=== PATIENT | female | born 1945 | race Caucasian/White ===

== ENCOUNTER 2017-07-10 18:48 | Emergency (ER) | payer OTHER, MEDICARE ==
[~2017-07-10 18:48] MED LIST: ADVAIR 250-501 EACH INH; ALENDRONATE SOD70 M2 PO; ASPIRIN EC81 M1 PO; CELEXA10 M1 PO; CYCLOBENZAPRINE10 M1 PO; DIAZEPAM5 MG PO; FLEXERIL 5MG TAB5 MG PO; GABAPENTIN600 M1 PO; GABAPENTIN600 MG PO; MULTI-DAY PLUS1 EAC1 PO; OXYCODONE-ACET1 EAC1 PO; PERCOCET 325 MG1 TA2 PO; PERCOCET 325 MG1 TA3 PO; PREDNISONE10 M2 PO; TESSALON PERLE100 M1 PO; VENTOLIN HFA18 GM INH; VITAMIN E100 UNI2 PO; ZITHROMAX500 M2 PO
--- NOTE | 2017-07-10 19:14 | ED GENERAL ADULT ---
History of Present Illness General Chief Complaint: Lower Extremity Problems Stated Complaint: BILATERAL LOWER EXT SWELLING Source: patient, family (daughter) Exam Limitations: no limitations Vital Signs & Intake/Output Vital Signs & Intake/Output Vital Signs Date Time Temp Pulse Resp B/P B/P Pulse O2 O2 Flow FiO2 Mean Ox Delivery Rate 07/10 2217 98.5 90 22 158/84 95 Room Air 07/11 2043 98.0 07/10 2028 98.0 78 22 160/84 96 07/10 185 98.2 89 22 96 ED Intake and Output 07/11 0000 07/10 1200 Intake Total Output Total Balance Patient 125 lb Weight Allergies Coded Allergies: No Known Allergies (06/17/17) Reconcile Medications Albuterol Sulfate (Ventolin Hfa) 18 GM HFA.AER.AD 2 PUF INH PRN COPD ( Reported) Aspirin (Ecotrin*) 81 MG TABLET.DR 1 TAB PO DAILY HEART/BLOOD (Reported) Citalopram Hydrobromide (Celexa) 10 MG TABLET 1 TAB PO DAILY MENTAL HEALTH ( Reported) Codeine Phosphate/Guaifenesi (Cheratussin AC Syrup) 10 MG-100 MG/5 ML LIQUID 10 ML PO Q6H PRN COUGH Cyclobenzaprine HCl 10 MG TABLET 2 TAB PO QPM MUSCLE SPASMS (Reported) Fluticasone/Salmeterol (Advair 250-50 Diskus) 1 EACH BLST.W.DEV 1 PUF INH BID COPD (Reported) Gabapentin 600 MG TABLET 1 TAB PO TID NERVE PAIN (Reported) Levofloxacin (Levaquin) 500 MG TABLET 1 TAB PO DAILY PNA Multivitamin-Min/Iron/FA/Vit K (Multi-Day Plus Minerals Tablet) 18 MG IRON-400 MCG-25 MCG TABLET 1 TAB PO DAILY SUPPLEMENT (Reported) Oxycodone HCl/Acetaminophen (Oxycodone-Acetaminophen 10-325) 1 EACH TABLET 1 TAB PO TID PRN PAIN (Reported) Prednisone 10 MG TABLET 1 TAB PO AD INFLAMMATION DAY1/DAY2 FOUR TABS DAY3/DAY4 THREE TABS DAY5/DAY6 TWO TABS DAY 7 ONE TAB Vitamin E Mixed (Vitamin E) (Unknown Strength) TABLET (Unknown Dose) PO DAILY SUPPLEMENT (Reported) Triage Note: PER PT 2 WEEKS BLE SWOLLEN AT FEET, CALLED LUIS ARMANDO AND TOLD TO COME TO ED, PAIN TO LEGS FROM HIP TO TOES. 1-2+PEDAL EDEMA Triage Nurses Notes Reviewed? yes Onset: Abrupt Duration: week(s): (2), constant, continues in ED, getting worse Timing: single episode today Injury Environment: home Severity: mild, moderate Severity Numbers: 6 No Modifying Factors: none LMP (ages 10-50): post menopausal, unknown : No Patient currently breastfeeds: No HPI: 72-year-old male past medical history of hyperlipidemia and COPD presents for evaluation of lower extremity edema. Patient states that both her legs up and swollen over the past 2-3 weeks. She says that normally they're doing okay during the day and swelling up at night. She reports some mild pain in the left thigh. She states that usually the swelling is worse in the right side but currently only the left side is swollen. She also reports she has had a productive cough over the past several weeks. No shortness of breath hemoptysis chest pain or fever. She does have a history of COPD he has been using her inhalers with mild improvement. No lightheadedness or dizziness. No nausea vomiting diarrhea. No history of CHF. (Carlos Grigsby) Past History Travel History Traveled to [place] past 21 day No Medical History Any Pertinent Medical History? see below for history Neurological: NONE EENT: NONE Cardiovascular: hyperlipidemia Respiratory: COPD, emphysema Gastrointestinal: NONE Hepatic: NONE Renal: NONE Musculoskeletal: BSPINAL STENOSIS Psychiatric: NONE Endocrine: NONE Blood Disorders: NONE Cancer(s): NONE TELETYPE CLERK/Reproductive: NONE Tetanus Vaccine: 02/22/15 Surgical History Surgical History: non-contributory Psychosocial History What is your primary language Ukrainian Tobacco Use: Current Daily Use Daily Tobacco Use Amount/Type: => 5 Cigarettes daily Family History Hx Contributory? No (Carlos Grigsby) Review of Systems Review of Systems Constitutional: Reports: no symptoms. EENTM: Reports: no symptoms. Respiratory: Reports: see HPI, cough, sputum production. Cardiovascular: Reports: peripheral edema. GI: Reports: no symptoms. Genitourinary: Reports: no symptoms. Musculoskeletal: Reports: see HPI, muscle pain. Skin: Reports: no symptoms. Neurological/Psychological: Reports: no symptoms. Hematologic/Endocrine: Reports: no symptoms. Immunologic/Allergic: Reports: no symptoms. All Other Systems: Reviewed and Negative (Carlos Grigsby) Physical Exam Physical Exam General Appearance: well developed/nourished, no apparent distress, alert, awake Head: atraumatic, normal appearance Eyes: Bilateral: normal appearance, PERRL, EOMI. Ears, Nose, Throat: normal pharynx, normal ENT inspection, hearing grossly normal Neck: normal inspection, supple, full range of motion Respiratory: normal breath sounds, chest non-tender, no respiratory distress, lungs clear, decreased breath sounds Cardiovascular: regular rate/rhythm, normal peripheral pulses Peripheral Pulses: 2+ radial (R), 2+ radial (L) Gastrointestinal: soft, non-tender Back: normal inspection, normal range of motion, no vertebral tenderness Extremities: There is mild nonpitting left-sided lower extremity edema mostly around the ankle and lower calf. There is no swelling of the right lower extremity. Full range of motion of the bilateral upper and lower extremities. Patient is able to walk and bear weight. No erythema or focal fluctuant areas. Neurologic/Psych: no motor/sensory deficits, awake, alert, oriented x 3, normal gait Skin: intact, normal color, warm/dry Lymphatic: no anterior cervical bre Core Measures ACS in differential dx? No CVA/TIA Diagnosis: No Sepsis Present: No Sepsis Focused Exam Completed? No (Jaun MEJIA,Carlos) Progress Differential Diagnoses I considered the following diagnoses in my evaluation of the patient: [DVT, dependent edema, CHF, pneumonia, PE, COPD exacerbation] Plan of Care: Orders Procedure Date/time Status EKG 07/11 1919 Active URINALYSIS 07/10 1908 Complete TROPONIN LEVEL 07/10 1908 Complete D-DIMER 07/10 1908 Complete COMPREHENSIVE METABOLIC PANEL 07/10 1908 Complete CBC WITHOUT DIFFERENTIAL 07/10 1908 Complete B-TYPE NATRIURETIC PEP (BNP) 07/10 1908 Complete Laboratory Tests 07/10/17 2030: Urine Color YEL, Urine Clarity CLEAR, Urine pH 6.0, Ur Specific [place] 1.015, Urine Protein NEG, Urine Ketones NEG, Urine Nitrite NEG, Urine Bilirubin NEG, Urine Urobilinogen 0.2, Ur Leukocyte Esterase TRACE H, Ur Microscopic SEDIMENT EXAMINED, Urine RBC FEW H, Urine WBC 3-5 H, Ur Epithelial Cells MANY H, Urine Mucus MANY H, Urine Hemoglobin NEG, Urine Glucose NEG 07/10/175: Anion Gap 9, Estimated GFR > 60, BUN/Creatinine Ratio 14.3, Glucose 113 H, Calcium 9.3, Total Bilirubin 0.5, AST 16, ALT 28, Alkaline Phosphatase 69, Troponin I < 0.01, Bjl-Z-Mgsthnybtsw Pept 566 H, Total Protein 6.4, Albumin 3.4 L, Globulin 3.0, Albumin/Globulin Ratio 1.1, D-Dimer High Sensitivty 449 H, CBC w Diff NO MAN DIFF REQ, RBC 3.89 L, MCV 88.3, MCH 29.3, MCHC 33.2, RDW 13.3 , MPV 7.8, Gran % 63.3, Lymphocytes % 28.5, Monocytes % 6.6, Eosinophils % 0.9, Basophils % 0.7, Absolute Granulocytes 7.9 H, Absolute Lymphocytes 3.5 H, Absolute Monocytes 0.8 H, Absolute Eosinophils 0.1, Absolute Basophils 0.1 Patient seen and evaluated. Currently she only has swelling in the left lower extremity. She also reports a cough. Vital signs are stable to signs of hypoxia. Blood work was obtained and shows a mildly elevated white blood cell count and d-dimer. CTA was obtained which showed a small left-sided pneumonia. No PE. Patient was medicated with ceftriaxone and Zithromax here. She was ambulated has a steady gait did not desaturate. A bedside ultrasound was performed and did not show any evidence of large obvious DVT. Patient has no DVT risk factors. She will be given a requisition for an outpatient ultrasound complete on Wednesday. Patient is afebrile she appears clinically well. Psi class II indicating outpatient treatment reasonable. Patient will be discharged on Levaquin. Continue using inhalers. Cheratussin for cough. Follow-up with primary care doctor this week. Discussed return precautions. Case discussed with Dr. Cuenca he agrees. Diagnostic Imaging: Viewed by Me: CT Scan. Discussed w/RAD: CT Scan. Radiology Impression: PATIENT: DEWAYNE TEIXEIRA PRESENT AGE: 72 PATIENT ACCOUNT NO: [id number] : 46 LOCATION: [facility] ORDERING PHYSICIAN: Carlos MEJIA SERVICE DATE: 07/10/17 EXAM TYPE: CAT - CTA CHEST-PULMONARY EMBOLISM EXAMINATION: CT ANGIOGRAM OF THE CHEST WITH AND WITHOUT CONTRAST (CT PULMONARY ANGIOGRAM FOR PE) CLINICAL INFORMATION: Cough and lower extremity edema. COMPARISON: CTA chest 06/17/2017. TECHNIQUE: Prior to contrast administration, noncontrast localization images were obtained. Subsequently, multidetector volumetric imaging was performed from the thoracic inlet to below the diaphragms following the administration of 80 mL Omnipaque 350 intravenous contrast. No contrast reaction reported. Sagittal, coronal, and MIP oblique sagittal reformatted images were obtained on the CT workstation, uploaded to PACS, and reviewed. Total exam dose-length product 291.39 mGy-cm. FINDINGS: QUALITY OF STUDY/CONTRAST BOLUS: Satisfactory PULMONARY ARTERIES: No central or segmental pulmonary emboli. THORACIC AORTA: No aneurysm or dissection. There are scattered nonflow-limiting atherosclerotic changes. LUNG: Stable emphysematous changes of the lungs, most pronounced the lung apices. There is scarring and atelectasis of the bilateral lower lung stearns. Minimal groundglass opacity in the left lower lobe. Stable. Visual triangle shaped nodule in the right lower lobe most compatible with a intrapulmonary lymph node, stable since CT chest dated 03/29/2015 compatible with a benign etiology. PLEURA : No pleural effusion or pneumothorax. MEDIASTINUM: Normal heart size. No pericardial effusion. No hilar or mediastinal lymphadenopathy. No evidence of septal bowing or right heart strain. CHEST WALL/AXILLA: No axillary or internal mammary lymphadenopathy. OSSEOUS STRUCTURES: Stable healing sternal body fracture with more significant periosteal reaction.. Stable mild scoliosis and degenerative changes of the visualized spine. Partially visualized ACDF hardware of the lower cervical spine. UPPER ABDOMEN: Unremarkable. No reflux of contrast into the hepatic veins to suggest elevated right heart pressures. IMPRESSION: No evidence of pulmonary embolism. Minimal left lower lobe scattered groundglass opacity which is nonspecific and may represent mild atelectasis or early infiltrate. Healing sternal body fracture. VTE: Negative. DICTATED BY: Sergio Waldrop MD DATE/TIME DICTATED:07/10/172144 PLATEMAN:RADHA DATE/ TIME TRANSCRIBED:07/10/172144 CONFIDENTIAL, DO NOT COPY WITHOUT APPROPRIATE AUTHORIZATION. <Electronically signed in Other Vendor System> SIGNED BY: Sergio Waldrop MD 07/10/172156 Initial ED EKG: SINUS TACH CONSIDER LVH, CONSIDER INFERIOR INFARCT (Carlos Grigsby) Departure Departure Disposition: HOME OR SELF CARE Condition: Stable Clinical Impression Primary Impression: Pneumonia Qualifiers: Pneumonia type: due to unspecified organism Laterality: left Lung location: lower lobe of lung Qualified Code: J18.1 - Lobar pneumonia, unspecified organism Referrals: Luis Armando Hdz APRN (PCP/Family) Additional Instructions: Rest and drink plenty of fluids. Take antibiotics as directed for the full course. Continue to use inhaler as directed. Make a follow-up appointment with your primary care doctor to review all results of today's visit. Complete outpatient ultrasound this week. Monitor symptoms return with any concerns. Departure Forms: Customer Survey General Discharge Information Prescriptions: Current Visit Scripts Levofloxacin (Levaquin) 1 TAB PO DAILY #10 TAB Codeine Phosphate/Guaifenesi (Cheratussin AC Syrup) 10 ML PO Q6H PRN COUGH #240 ML (Carlos Grigsby) PA/MANAGER INTERN Co-Sign Statement Statement: ED Attending supervision documentation- [] I saw and evaluated the patient. I have also reviewed all the pertinent lab results and diagnostic results. I agree with the findings and the plan of care as documented in the PA's/MANAGER INTERN's documentation. [x] I have reviewed the ED Record and agree with the PA's/MANAGER INTERN's documentation. [] Additions or exceptions (if any) to the PAs/MANAGER INTERN's note and plan are summarized below: [] (Joellen KHAN,Gt Simmons) Critical Care Note Critical Care Note Critical Care Time: non-applicable (Carlos Grigsby)
[2017-07-10 19:29] LABS: ABSOLUTE BASOPHIL COUNT 0.1 /CUMM (0.0-0.2); ABSOLUTE EOSINOPHIL COUNT 0.1 /CUMM (0.0-0.7); ABSOLUTE GRANULOCYTE CT 7.9 /CUMM (1.4-6.5); ABSOLUTE LYMPH COUNT 3.5 /CUMM (1.2-3.4); ABSOLUTE MONOCYTE COUNT 0.8 /CUMM (0.10-0.60); BASOPHIL % 0.7 % (0.0-2.0); EOSINOPHIL % 0.9 % (0-5); GRANULOCYTE % 63.3 % (42.2-75.2); HEMATOCRIT 34.4 % (37-47); MEAN CORPUSCULAR HGB 29.3 PG (27.0-31.0); MEAN CORPUSCULAR HGB CONC 33.2 G/DL (33.0-37.0); MEAN CORPUSCULAR VOLUME 88.3 FL (81.0-99.0); MEAN PLATELET VOLUME 7.8 FL (7.4-10.4); PLATELET COUNT 431 /CUMM (130-400); RBC DISTRIBUTION WIDTH 13.3 % (11.5-14.5); RED BLOOD CELL CT 3.89 /CUMM (4.20-5.40); WHITE BLOOD CELL COUNT 12.4 /CUMM (4.8-10.8)
--- NOTE | 2017-07-10 20:17 | RADIOLOGY REPORT ---
EXAMINATION: XR CHEST CLINICAL INFORMATION: CHF, pneumonia. COMPARISON: 06/17/2017 TECHNIQUE: 2 views of the chest were obtained. FINDINGS: Lungs and Bev: There is mild infiltrate at LEFT base. Heart normal in size. There is a blunting of LEFT costophrenic angle suggesting small effusion. Pleura: Small LEFT effusion. Heart: The heart is normal in size. Mediastinum: The mediastinum is within normal limits.. Bones: Skeletal structures included are normal for patient's age. IMPRESSION: Mild LEFT lower lobe infiltrate and a small LEFT pleural effusion presumably pneumonia, follow-up chest x-ray one month after completion of treatment recommended to ensure complete clearance.
--- NOTE | 2017-07-10 21:57 | CT SCAN REPORT ---
EXAMINATION: CT ANGIOGRAM OF THE CHEST WITH AND WITHOUT CONTRAST (CT PULMONARY ANGIOGRAM FOR PE) CLINICAL INFORMATION: Cough and lower extremity edema. COMPARISON: CTA chest 06/17/2017. TECHNIQUE: Prior to contrast administration, noncontrast localization images were obtained. Subsequently, multidetector volumetric imaging was performed from the thoracic inlet to below the diaphragms following the administration of 80 mL Omnipaque 350 intravenous contrast. No contrast reaction reported. Sagittal, coronal, and MIP oblique sagittal reformatted images were obtained on the CT workstation, uploaded to PACS, and reviewed. Total exam dose-length product 291.39 mGy-cm. FINDINGS: QUALITY OF STUDY/CONTRAST BOLUS: Satisfactory PULMONARY ARTERIES: No central or segmental pulmonary emboli. THORACIC AORTA: No aneurysm or dissection. There are scattered nonflow-limiting atherosclerotic changes. LUNG: Stable emphysematous changes of the lungs, most pronounced the lung apices. There is scarring and atelectasis of the bilateral lower lung stearns. Minimal groundglass opacity in the left lower lobe. Stable. Visual triangle shaped nodule in the right lower lobe most compatible with a intrapulmonary lymph node, stable since CT chest dated 03/29/2015 compatible with a benign etiology. PLEURA: No pleural effusion or pneumothorax. MEDIASTINUM: Normal heart size. No pericardial effusion. No hilar or mediastinal lymphadenopathy. No evidence of septal bowing or right heart strain. CHEST WALL/AXILLA: No axillary or internal mammary lymphadenopathy. OSSEOUS STRUCTURES: Stable healing sternal body fracture with more significant periosteal reaction.. Stable mild scoliosis and degenerative changes of the visualized spine. Partially visualized ACDF hardware of the lower cervical spine. UPPER ABDOMEN: Unremarkable. No reflux of contrast into the hepatic veins to suggest elevated right heart pressures. IMPRESSION: No evidence of pulmonary embolism. Minimal left lower lobe scattered groundglass opacity which is nonspecific and may represent mild atelectasis or early infiltrate. Healing sternal body fracture. VTE: Negative.
[2017-07-10 22:18] VITALS: BP 158/84
[2017-07-10] MEDS ORDERED: CHERATUSSIN AC118 M1 PO (22:25)
[2017-07-10] MEDS ORDERED: LEVAQUIN500 M1 PO (22:25)
== END 2017-07-10 22:29 ==
LOC: ERH 18:48
PROVIDERS: Physician Assistant Medical
DX: J18.9 Pneumonia, unspecified organism (principal); F17.210 Nicotine dependence, cigarettes, uncomplicated
CPT/HCPCS: 71046; 81001; 93005; 93010; 96374; J0456; J0696